=== PATIENT | female | born 2000 | race Caucasian/White ===

== ENCOUNTER 2021-12-13 14:06 | Emergency (ER) | payer SELFPAY ==
[~2021-12-13] VITALS: Ht 154.9 cm; Wt 52.3 kg
[2021-12-13 14:22] VITALS: BP 116/80; TEMP 98.3
[2021-12-13] MEDS ORDERED: REGLAN 10MG10 MG/TAB PO (15:32)
[2021-12-13 15:43] VITALS: PULSE 92
== END 2021-12-13 15:43 | disposition home or self-care (01) ==
LOC: COL.ER 14:06
DX: S09.90XA Unspecified injury of head, initial encounter (principal); F07.81 Postconcussional syndrome; R40.2412 Glasgow coma scale score 13-15, at arrival to emergency department; V89.2XXA Person injured in unspecified motor-vehicle accident, traffic, initial encounter; Y92.410 Unspecified street and highway as the place of occurrence of the external cause